=== PATIENT | female | born 1960 | race Caucasian/White ===

== ENCOUNTER 2016-03-02 08:27 | Outpatient (CLI) | payer OTHER | END 2016-03-02 08:28 | disposition home or self-care (01) | DX: E55.9 Vitamin D deficiency, unspecified (principal); E61.1 Iron deficiency; N95.1 Menopausal and female climacteric states; R53.83 Other fatigue; R73.03 Prediabetes; Z00.01 Encounter for general adult medical examination with abnormal findings; Z79.890 Hormone replacement therapy ==

== ENCOUNTER 2016-03-08 08:32 | Outpatient (CLI) | payer MEDICAID | END 2016-03-08 08:33 | disposition home or self-care (01) | DX: E55.9 Vitamin D deficiency, unspecified (principal); E61.1 Iron deficiency; N95.1 Menopausal and female climacteric states; R53.83 Other fatigue; Z00.01 Encounter for general adult medical examination with abnormal findings; Z79.890 Hormone replacement therapy ==

== ENCOUNTER 2016-07-20 10:33 | Outpatient (CLI) | payer MEDICAID ==
--- NOTE | 2016-07-20 16:07 | XRAY Report ---
THREE VIEW RIGHT KNEE: 07/20/2016 CLINICAL INDICATION: Pain. AP, lateral, sunrise views of the right knee demonstrate no evidence of fracture or dislocation. The joint spaces are preserved. No effusion is present. IMPRESSION: NORMAL RIGHT KNEE. JOB #: [id number] EXT JOB #:[id number]
--- NOTE | 2016-07-20 16:09 | XRAY Report ---
THREE VIEW LEFT ANKLE: 07/20/2016 CLINICAL INDICATION: Pain. FINDINGS: AP, lateral, and oblique views of the left ankle demonstrate no evidence of acute fracture or dislocation. Mild degenerative changes are present, with small plantar calcaneal spurring. IMPRESSION: MILD OSTEOARTHRITIS. 15:9:55 JOB #: [id number] EXT JOB #:[id number]
== END 2016-07-20 10:34 | disposition home or self-care (01) ==
LOC: DI.S 10:33
PROVIDERS: ATTEND Naturopath
DX: M19.072 Primary osteoarthritis, left ankle and foot (principal); M25.561 Pain in right knee

== ENCOUNTER 2017-09-15 08:11 | Outpatient (CLI) | payer MEDICAID ==
[2017-09-15 09:05] LABS: ALBUMIN/GLOBULIN RATIO 1.1 (1.0-2.2); ALKALINE PHOSPHATASE 61 IU/L (42-121); ALT ALANINE AMINOTRANSFERASE 22 IU/L (10-60); AST ASPARTATE AMINOTRANSFERASE 21 IU/L (10-42); BILIRUBIN,TOTAL 0.6 mg/dL (0.2-1.0); BUN - BLOOD UREA NITROGEN 23 mg/dL (6-20); CARBON DIOXIDE - CO2 27 mmol/L (21-32); CHLORIDE 103 mmol/L (101-111); CHOLESTEROL 219 mg/dL; CREATININE 0.9 mg/dL (0.4-1.0); GFR - MDRD 65 (>89); GLUCOSE 96 mg/dL (70-100); HDL CHOLESTEROL 73 mg/dL; LDL CHOLESTEROL,CALCULATED 133 mg/dL; LDL/HDL RATIO 1.8 (<4.4); SODIUM 139 mmol/L (135-145); TOTAL PROTEIN 7.6 g/dL (6.7-8.2); VLDL CHOLESTEROL 13 mg/dL
[2017-09-15 09:16] LABS: THYROID STIMULATING HORMONE 2.62 uIU/mL (0.34-5.60)
[2017-09-15 09:20] LABS: FREE T4 (FREE THYROXINE) 0.78 ng/dL (0.58-1.64)
[2017-09-15 09:23] LABS: FERRITIN 33.5 ng/mL (11.0-306.8)
[2017-09-15 09:30] LABS: EOSINOPHILS # (AUTO) 0.2 10^3/uL (0.0-0.7); EOSINOPHILS % (AUTO) 6.8 %; LYMPHOCYTES # (AUTO) 1.3 10^3/uL (1.5-3.5); LYMPHOCYTES % (AUTO) 38.7 %; MEAN CORPUSCULAR HEMOGLOBIN 31.1 pg (27.0-31.0); MEAN CORPUSCULAR HGB CONC 33.9 g/dL (32.0-36.0); MEAN CORPUSCULAR VOLUME 91.6 fL (81.0-99.0); MEAN PLATELET VOLUME 7.7 fL (7.9-10.8); MONOCYTES # (AUTO) 0.3 10^3/uL (0.0-1.0); MONOCYTES % (AUTO) 8.1 %; NEUTROPHILS # (AUTO) 1.5 10^3/uL (1.5-6.6); NEUTROPHILS % (AUTO) 45.4 %; PLT - PLATELET COUNT 265 10^3/uL (130-450); RED BLOOD COUNT 4.17 10^6/uL (4.20-5.40); RED CELL DISTRIBUTION WIDTH 13.7 % (12.0-15.0); WHITE BLOOD COUNT 3.4 x10^3/uL (4.8-10.8)
[2017-09-15 10:32] LABS: HB2 TOTAL 14.1 g/dL; HEMOGLOBIN A1C 0.5 g/dL; HEMOGLOBIN A1C % 5.4 % (4.6-6.2)
== END 2017-09-15 08:12 | disposition home or self-care (01) ==
LOC: LAB 08:11
PROVIDERS: ATTEND Naturopath
DX: Z00.01 Encounter for general adult medical examination with abnormal findings (principal); E61.1 Iron deficiency; E55.9 Vitamin D deficiency, unspecified; E72.11 Homocystinuria; R73.03 Prediabetes
CPT/HCPCS: 36415; 80053; 80061; 82306; 82728; 83036; 83090; 83721; 84439; 84443; 84481; 85025

== ENCOUNTER 2018-08-19 10:43 | Outpatient (CLI) | payer MEDICAID ==
[2018-08-19 17:29] LABS: T4 (THYROXINE) 9.25 ug/dL (6.09-12.23)
[2018-08-19 17:32] LABS: THYROID STIMULATING HORMONE 0.51 uIU/mL (0.34-5.60)
== END 2018-08-19 10:44 | disposition home or self-care (01) ==
LOC: LAB.S 10:43
PROVIDERS: ATTEND Naturopath
DX: E03.9 Hypothyroidism, unspecified (principal)
CPT/HCPCS: 36415; 84436; 84443; 84480; 84481

== ENCOUNTER 2018-10-29 07:34 | Outpatient (CLI) | payer MEDICAID ==
[2018-10-29 12:09] LABS: THYROID STIMULATING HORMONE 1.37 uIU/mL (0.34-5.60)
[2018-10-29 12:11] LABS: FREE T4 (FREE THYROXINE) 0.81 ng/dL (0.58-1.64)
== END 2018-10-29 07:35 | disposition home or self-care (01) ==
LOC: LAB.S 07:34
PROVIDERS: ATTEND Naturopath
DX: E06.3 Autoimmune thyroiditis (principal)
CPT/HCPCS: 36415; 84439; 84443; 84481

== ENCOUNTER 2019-03-31 08:44 | Outpatient (CLI) | payer MEDICAID ==
[2019-04-01 14:05] LABS: THYROID STIMULATING HORMONE 0.49 uIU/mL (0.34-5.60)
[2019-04-01 14:07] LABS: FREE T4 (FREE THYROXINE) 0.87 ng/dL (0.58-1.64)
== END 2019-03-31 08:45 | disposition home or self-care (01) ==
LOC: LAB.S 08:44
PROVIDERS: ATTEND Naturopath
DX: E06.3 Autoimmune thyroiditis (principal)
CPT/HCPCS: 36415; 84439; 84443; 84481

== ENCOUNTER 2020-01-08 08:16 | Outpatient (CLI) | payer MEDICAID ==
[2020-01-08 15:18] LABS: BASOPHILS # (AUTO) 0.1 10^3/uL (0.0-0.1); BASOPHILS % (AUTO) 1.2 %; EOSINOPHILS # (AUTO) 0.2 10^3/uL (0.0-0.7); EOSINOPHILS % (AUTO) 5.6 %; HGB - HEMOGLOBIN 13.4 g/dL (12.0-16.0); LYMPHOCYTES # (AUTO) 1.4 10^3/uL (1.5-3.5); LYMPHOCYTES % (AUTO) 34.5 %; MEAN CORPUSCULAR HEMOGLOBIN 29.6 pg (27.0-31.0); MEAN CORPUSCULAR HGB CONC 31.2 g/dL (32.0-36.0); MEAN CORPUSCULAR VOLUME 94.9 fL (81.0-99.0); MEAN PLATELET VOLUME 9.8 fL (7.9-10.8); MONOCYTES # (AUTO) 0.3 10^3/uL (0.0-1.0); MONOCYTES % (AUTO) 6.6 %; NEUTROPHILS # (AUTO) 2.1 10^3/uL (1.5-6.6); NEUTROPHILS % (AUTO) 51.9 %; PLT - PLATELET COUNT 308 10^3/uL (130-450); RED BLOOD COUNT 4.52 10^6/uL (4.20-5.40); RED CELL DISTRIBUTION WIDTH 15.3 % (12.0-15.0); WHITE BLOOD COUNT 4.1 x10^3/uL (4.8-10.8)
[2020-01-08 15:39] LABS: ALBUMIN 4.5 g/dL (3.2-5.5); ALBUMIN/GLOBULIN RATIO 1.3 (1.0-2.2); ALKALINE PHOSPHATASE 90 IU/L (42-121); ALT ALANINE AMINOTRANSFERASE 19 IU/L (10-60); AST ASPARTATE AMINOTRANSFERASE 20 IU/L (10-42); BILIRUBIN,TOTAL 0.4 mg/dL (0.2-1.0); BUN - BLOOD UREA NITROGEN 19 mg/dL (6-20); CALCIUM 9.8 mg/dL (8.5-10.3); CARBON DIOXIDE - CO2 27 mmol/L (21-32); CHLORIDE 104 mmol/L (101-111); CHOL/HDL RATIO 3.3 (<4.4); CHOLESTEROL 251 mg/dL; CREATININE 0.9 mg/dL (0.4-1.0); GLUCOSE 95 mg/dL (70-100); HDL CHOLESTEROL 77 mg/dL; LDL CHOLESTEROL,CALCULATED 148 mg/dL; LDL/HDL RATIO 1.9 (<4.4); SODIUM 141 mmol/L (135-145); TOTAL PROTEIN 8.1 g/dL (6.7-8.2); VLDL CHOLESTEROL 26 mg/dL
[2020-01-08 15:49] LABS: BILIRUBIN,URINE NEGATIVE (NEGATIVE); GLUCOSE, URINE (UA) NEGATIVE (NEGATIVE); KETONES,URINE (UA) NEGATIVE (NEGATIVE); LEUKOCYTE ESTERASE, URINE SMALL (NEGATIVE); NITRITE,URINE NEGATIVE (NEGATIVE); OCCULT BLOOD,URINE NEGATIVE (NEGATIVE); PROTEIN,URINE NEGATIVE (NEGATIVE); UROBILINOGEN,URINE 0.2 (NORMAL) E.U./dL (NORMAL)
[2020-01-08 15:50] LABS: CLARITY,URINE CLEAR (CLEAR); THYROID STIMULATING HORMONE 0.82 uIU/mL (0.34-5.60)
[2020-01-08 15:51] LABS: FREE T3 3.36 pg/mL (2.5-3.9); FREE T4 (FREE THYROXINE) 0.76 ng/dL (0.58-1.64)
[2020-01-08 15:56] LABS: FERRITIN 33.4 ng/mL (11.0-306.8)
[2020-01-08 16:20] LABS: RBC,URINE None Seen /HPF (0-5); SQUAMOUS EPITHELIAL CELL,UR RARE Squamous (<= Few)
[2020-01-08 16:21] LABS: BACTERIA,URINE Rare /HPF (None Seen); EPITHELIAL CELLS,UR FEW Transitional /HPF (<= Few)
[2020-01-08 20:31] LABS: HEMOGLOBIN A1c% 5.7 % (4.27-6.07)
[2020-01-09 08:17] LABS: PROGESTERONE 5.7 ng/mL
== END 2020-01-08 08:17 | disposition home or self-care (01) ==
LOC: LAB.S 08:16
PROVIDERS: ATTEND Naturopath
DX: Z00.01 Encounter for general adult medical examination with abnormal findings (principal); E06.3 Autoimmune thyroiditis; E61.1 Iron deficiency; R53.83 Other fatigue
CPT/HCPCS: 36415; 80053; 80061; 81001; 82652; 82728; 83036; 83721; 84144; 84439; 84443; 84481; 85025

== ENCOUNTER 2020-01-08 10:32 | Outpatient (CLI) | payer MEDICAID ==
--- NOTE | 2020-01-08 14:53 | XRAY Report ---
PROCEDURE: Hip w/Pelvis 2-3V LT INDICATIONS: LEFT HIP PAIN TECHNIQUE: AP pelvis with lateral view(s) of the bilateral hip(s). COMPARISON: None. FINDINGS: Bones: No fractures or dislocations. Pelvic ring appears intact. No suspicious bony lesions. Ther e is moderate left hip joint degeneration. Mild degenerative joint disease of the sacroiliac joints b ilaterally. There is moderate to severe lower lumbar spine disc degeneration. Soft tissues: The visualized bowel gas pattern is normal. No suspicious soft tissue calcifications. IMPRESSION: 1. Moderate degenerative joint disease of the left hip. 2. Mild degenerative joint disease of the sacroiliac joints bilaterally. 3. Severe degenerative disc disease in the lower lumbar spine. Reviewed by: Delroy Mcgowan MD on 01/08/2020 2:52 PM PST Approved by: Delroy Mcgowan MD on 01/08/2020 2:52 PM PST Station ID: [id number]
== END 2020-01-08 10:33 | disposition home or self-care (01) ==
LOC: DI.S 10:32
PROVIDERS: ATTEND Naturopath
DX: M16.12 Unilateral primary osteoarthritis, left hip (principal); M47.818 Spondylosis without myelopathy or radiculopathy, sacral and sacrococcygeal region; M51.36 Other intervertebral disc degeneration, lumbar region

== ENCOUNTER 2020-08-03 13:12 | Outpatient (CLI) | payer MEDICAID ==
--- NOTE | 2020-08-04 13:39 | Mammography Report ---
BILATERAL DIGITAL SCREENING MAMMOGRAM 3D/2D: 08/03/2020 CLINICAL: Routine screening. Comparison is made to exams dated: 01/07/2015 mammogram, 12/12/2012 mammogram, and 06/23/2010 mammogram - [facility]. There are scattered fibroglandular elements in both breasts. No significant masses, calcifications, or other findings are seen in either breast. There has been no significant interval change. IMPRESSION: NEGATIVE There is no mammographic evidence of malignancy. A 1 year screening mammogram is recommended. This exam was interpreted at Station ID: [id number]. NOTE: For mammograms, a report in lay terms will be sent to the patient. Approximately 15% of breast malignancies will not be visualized mammographically. In the management of a palpable breast mass, a negative mammogram must not discourage biopsy of a clinically suspicious lesion. Electronically Signed By: Gagandeep Colon M.D., [email or web address]:08/03/2020 16:51:55 ACR BI-RADS Category 1: Negative 3341F PARENCHYMAL PATTERN: (A) - The breast(s) demonstrate(s) scattered fibroglandular densities. BI-RADS CATEGORY: (1) - 1 RECOMMENDATION: (ANNUAL) - Recommend routine annual screening mammography. [id number] 1 year screening LATERALITY: (B)
== END 2020-08-03 13:13 | disposition home or self-care (01) ==
LOC: DI 13:12
DX: Z12.31 Encounter for screening mammogram for malignant neoplasm of breast (principal)

== ENCOUNTER 2021-02-22 14:57 | Outpatient (CLI) | payer MEDICAID ==
[2021-02-22 21:08] LABS: ALBUMIN 4.4 g/dL (3.2-5.5); ALBUMIN/GLOBULIN RATIO 1.3 (1.0-2.2); BILIRUBIN,TOTAL 0.4 mg/dL (0.2-1.0); CALCIUM 9.1 mg/dL (8.5-10.3); CREATININE 0.9 mg/dL (0.4-1.0); TOTAL PROTEIN 7.7 g/dL (6.7-8.2)
== END 2021-02-22 14:58 | disposition home or self-care (01) ==
LOC: LAB.S 14:57
PROVIDERS: ATTEND Naturopath
DX: E03.9 Hypothyroidism, unspecified (principal); N64.52 Nipple discharge; R74.01 Elevation of levels of liver transaminase levels; Z79.890 Hormone replacement therapy
CPT/HCPCS: 36415; 80053; 82977; 83690; 84144; 84146